=== PATIENT | female | born 1950 | race Caucasian/White ===

== ENCOUNTER → 2018-08-23 13:19 | Outpatient (CLI) | payer SELFPAY ==
--- NOTE | 2018-08-23 13:30 | CT_ITS ---
STUDY: CT CHEST WITHOUT CONTRAST REASON FOR EXAM: Female, 67 years old. Cardiac calcium score, chest over read RADIATION DOSAGE (If Supplied By Facility): CTDIvol = ( 12.19 ) mGy, DLP = ( 316.93 ) mGycm TECHNIQUE: Transaxial imaging was performed without the administration of intravenous contrast material. Individualized dose optimization techniques were used for this CT. COMPARISON: None. FINDINGS: Body wall soft tissues: No acute process. Upper abdomen: No acute process. Osseous structures: No acute process. Mediastinum: No mass or lymphadenopathy. Lungs: Evidence of COPD. No discrete pulmonary nodules. Aorta: Mild nonaneurysmal ectasia of the ascending aorta and proximal arch 3.3 cm. Mild arch atherosclerosis. Pulmonary arteries: Nondilated. Heart: No significant cardiomegaly or pericardial effusion. There is mild ectasia of the left atrium compared to young chambers. Coronary arteries: The right and left coronary arteries each emerge from the appropriate coronary sinus with right coronary dominance to the PDA. There are 2 foci of calcified plaque of the proximal to mid LAD, none seen in the circumflex, a single focus of calcified plaque in the proximal RCA. Calcium scoring is reported under separate cover with cardiology. CT/Limited Chest CT w/CCTA IMPRESSION: Minimal coronary calcium. Normal coronary artery branching anatomy. No other acute thoracic process is evident. Electronically Signed: Peterson Dahl MD at 9:18 EDT Tel , Service support ,
[2018-08-23 13:43] VITALS: BP 114/68; PULSE 63; RESP 18; O2SAT 98; BMI 37.7
--- NOTE | 2018-08-23 16:58 | CA.SCORE ---
Calcium Scoring Date of Study:: 08/23/18 Coronary Calcium Scoring: High-resolution Computed Tomographic imaging of the chest was performed on [09/02/2018], with particular attention paid to the coronary arteries. Images from the examination were analyzed for the presence and extent of coronary artery calcification , using coronary calcium quantification software. The patient tolerated the procedure well and there were no complications. The results of the coronary calcification analysis are provided below. - Findings Left Main (LM): 0 Left Anterior Descending (LAD): 48.5 Left Circumflex (LCX): 0 Right Coronary Artery (RCA): 7 Total Agatston Score: 55.5 - Conclusion Calcium Scoring Interpretation: Calcium Score Interpretation 0 No identifiable atherosclerotic plaque. Very low cardiovascular disease risk. <5% chance of presence coronary artery disease A Negative Examination 1-10 Minimal Plaque burden. Significant coronary artery disease very unlikely. 11-100 Mild plaque burden. Likely mild or minimal coronary atherosclerosis. 101-400 Moderate plaque burden Moderate non-obstructive coronary artery disease highly likely. Over 400 Extensive plaque burden. High likelihood of at least one significant coronary stenosis (>50% diameter) Calcium Score: 11 - 100 Likely mild or minimal coronary stenosis - The above is suggestive of mild to minimal coronary atherosclerosis. A full evaluation of cardiac risk factors should include a full assessment of all conventional risk factors.
== END ==
PROVIDERS: Family Provider Family Medicine; PCP Family Medicine; Referring Provider Nurse Practitioner Family; Visit Provider Nurse Practitioner Family
DX: R07.9 Chest pain, unspecified (principal)
CPT/HCPCS: 75571; 76380

== ENCOUNTER → 2019-12-11 16:37 | Outpatient (CLI) | payer MEDICARE, OTHER, SELFPAY ==
[2018-08-23 13:43] VITALS: BMI 37.7
[2019-12-11 17:03] LABS: Bacteria 0 SEEN /hpf (None Seen); Mucous, Urine 0 SEEN /hpf (<or=2+); Red Blood Cells-Urine 0 SEEN /hpf (0-5); Squamous Epithelial Cells - UA 0 SEEN /hpf (5-10); White Blood Cells 0 SEEN /hpf (0-5)
[2019-12-11 17:23] LABS: Color, Urine Yellow (Yellow); Glucose, Dipstick Normal (Normal); Ketone-Dipstick Negative (Negative); Leukocyte Esterase-Dipstick Negative /ul (Negative); Nitrite-Dipstick Negative (Negative); Occult Blood-Urine Negative /ul (Negative); Protein-Dipstick Negative (Negative); Urine Bilirubin Dipstick Negative (Negative); Urine Clarity Clear (Clear); Urine Urobilinogen Normal (Normal)
== END ==
PROVIDERS: PCP Family Medicine; Referring Provider Urology; Visit Provider Urology
DX: R31.21 Asymptomatic microscopic hematuria (principal)
CPT/HCPCS: 81001